=== PATIENT | female | born 1995 | race Hispanic/Latino ===

== ENCOUNTER 2023-09-30 15:50 | Emergency (ER) | payer MEDICAID, SELFPAY ==
[2023-09-30 16:24] LABS: Pregnancy Test - Urine (BHCG) POSITIVE (Negative)
[2023-09-30 16:25] LABS: Bilirubin Negative (Negative); Blood, Urine Negative (Negative); Clarity Cloudy (Clear); Glucose, Urine (Dipstick) Negative (Negative); Ketone, Urine Negative (Negative); Leukocyte Small (Negative); Nitrite Negative (Negative); Pregu Control Background? CLEAR/WHITE (CLR/WHITE); Pregu Control Bar Appear? YES (CONTROL BAR); Protein, Urine (Dipstick) 30 mg/dL (Neg-Trace); Urobilinogen 0.2 mg/dL (Less than 2); pH, Urine 8.5 (5.0-9.0)
[2023-09-30 16:28] LABS: CAUTI Indications for Culture Pregnancy
[2023-09-30 16:30] LABS: RBC/HPF None Seen HPF (0-3); Squamous Epithelial 21-50 HPF (0-3)
[2023-09-30 16:31] LABS: Bacteria/HPF 3+ HPF (None Seen)
[2023-09-30 16:32] LABS: Urine Culture Reflex Yes Yes
[2023-09-30] MEDS ORDERED: Sodium Chloride 0.9% 1,000 ML ONE (17:07)
[2023-09-30 17:10] LABS: #Eosinphils 0.3 thou/uL (0.0-0.7); #Lymphocytes 1.6 thou/uL (1.20-3.40); #Monocytes 0.4 thou/uL (0.11-0.59); #Neutrophils 7.2 thou/uL (1.40-6.50); %Basophils 0.5 % (0.0-1.0); %Eosinophils 2.9 % (0.0-10.0); %Lymphocytes 16.5 % (21.0-51.0); %Monocytes 3.9 % (0.0-10.0); %Neutrophils 76.2 % (42.0-75.0); Hemoglobin 11.8 g/dL (12.0-16.0); Mean Corpuscular HGB CONC 33.7 g/dL (32.0-36.0); Mean Corpuscular Hemoglobin 29.5 pg (27.0-31.0); Mean Corpuscular Volume 87.6 fl (78.0-98.0); Mean Platelet Volume 7.6 fL (7.4-10.4); Platelet Count 230 10x3/uL (130-400); RBC Distribution Width 12.5 % (11.5-14.5); White Blood Cell (WBC) Count 9.4 10x3/uL (4.8-10.8)
[2023-09-30 17:23] LABS: ALT (SGPT) 7 U/L (8-55); AST (SGOT) 10 U/L (5-34); Albumin 3.5 g/dL (3.5-5.0); Alkaline Phosphatase 78 U/L (40-110); Anion Gap 12 mmol/L (10-20); BUN (Urea Nitrogen) 8 mg/dL (7.0-18.7); Bilirubin, Total 0.2 mg/dL (0.2-1.2); Calc. Creatinine Clearance 0 mL/min (70-130); Calcium 8.8 mg/dL (7.8-10.44); Carbon Dioxide 22 mmol/L (22-29); Chloride 105 mmol/L (98-107); Estimated GFR 112; Globulin 3.3 g/dL (2.4-3.5); Glucose 83 mg/dL (70-105); Protein, Total 6.8 g/dL (6.0-8.3); Sodium 135 mmol/L (136-145)
[2023-09-30] MEDS ORDERED: cefTRIAXone (ROCEPHIN) 1 GM VIAL ONE (17:26)
[2023-09-30] MEDS ORDERED: Sodium Chloride 0.9% 100 ML ONE (17:26)
== END 2023-09-30 20:00 | disposition home or self-care (01) ==
LOC: NAV ERS 15:50
DX: O23.42 Unspecified infection of urinary tract in pregnancy, second trimester (principal); O99.412 Diseases of the circulatory system complicating pregnancy, second trimester; Z3A.23 23 weeks gestation of pregnancy
CPT/HCPCS: 36415; 80053; 81001; 81025; 83605; 85025; 87077; 87086; 87186; 96365; J0696; J3490; J7050